=== PATIENT | male | born 1940 | race Asian ===

== ENCOUNTER 2016-12-03 09:01 | Emergency (ER) | payer MEDICARE ==
[~2016-12-03] VITALS: Ht 167.6 cm; Wt 68.0 kg
[2016-12-03 09:01] VITALS: BP 133/60; PULSE 67; RESP 18; TEMP 97.6; O2SAT 96
[2016-12-03 09:37] LABS: BASOPHILS % (AUTO) 0.3 % (0.0-2.0); EOSINOPHILS % (AUTO) 0.3 % (0.0-4.0); HEMOGLOBIN 14.8 g/dL (14.0-18.0); LYMPHOCYTES # (AUTO) 0.3 K/uL (1.0-5.5); LYMPHOCYTES % (AUTO) 4.9 % (20.5-51.5); MEAN CORPUSCULAR HEMOGLOBIN 29 pg (27-31); MEAN CORPUSCULAR HGB CONC 32 % (32-36); MEAN CORPUSCULAR VOLUME 90 fL (79.0-98.0); MONOCYTES # (AUTO) 0.3 K/uL (0.0-1.0); MONOCYTES % (AUTO) 5.9 % (1.7-9.3); NEUTROPHILS # (AUTO) 4.7 K/uL (1.8-7.7); NEUTROPHILS % (AUTO) 88.6 % (40.0-70.0); PLATELET COUNT (AUTO) 141 K/uL (130-430); RED BLOOD CELL COUNT(AUTO) 5.11 MIL/uL (4.2-6.2); RED CELL DISTRIBUTION WIDTH 12.4 % (9.0-15.0); WHITE BLOOD COUNT (AUTO) 5.3 K/uL (4.8-10.8)
[2016-12-03 09:38] LABS: ANION GAP 5 (5-15); CALCIUM 8.2 mg/dL (8.4-11.0); CHLORIDE 98 mmol/L (98-107); CREATININE 1.86 mg/dL (0.55-1.30); GLUCOSE 189 mg/dL (70-99); POTASSIUM 4.4 mmol/L (3.5-5.1); SODIUM SERUM 131 mmol/L (136-145); UREA NITROGEN, BLOOD 20 mg/dL (8-21)
[2016-12-03 09:43] LABS: ALANINE AMINOTRANSFERASE 208 U/L (12-78); ALBUMIN 2.8 g/dL (3.4-4.8); ASPARTATE AMINOTRANSFERASE 122 U/L (10-37); TOTAL BILIRUBIN 0.3 mg/dL (0.0-1.0); TOTAL PROTEIN, SERUM 6.6 g/dL (6.4-8.3)
[2016-12-03 10:57] VITALS: BP 107/67; PULSE 66; RESP 19; TEMP 97.6; O2SAT 99
== END 2016-12-03 10:57 | disposition home or self-care (01) ==
LOC: SED 09:01
DX: E11.649 Type 2 diabetes mellitus with hypoglycemia without coma (principal); R41.82 Altered mental status, unspecified; I10 Essential (primary) hypertension; Z86.73 Personal history of transient ischemic attack (TIA), and cerebral infarction without residual deficits
CPT/HCPCS: 36415; 80053; 82962; 85025; 99284